=== PATIENT | female | born 1975 | race Caucasian/White ===

== ENCOUNTER 2025-02-21 17:36 | Emergency (ER) | payer OTHER | END 2025-02-21 20:23 | disposition home or self-care (01) | LOC: JP.ED 17:36 | DX: S82.832A Other fracture of upper and lower end of left fibula, initial encounter for closed fracture (principal); I10 Essential (primary) hypertension; Z79.899 Other long term (current) drug therapy; X50.1XXA Overexertion from prolonged static or awkward postures, initial encounter; Y93.01 Activity, walking, marching and hiking | CPT/HCPCS: 73610-26-LT; 73610-LT; 99283 ==